=== PATIENT | female | born 1970 | race Caucasian/White ===

== ENCOUNTER 2022-08-14 13:07 | Outpatient (REF) | payer MEDICAID, SELFPAY ==
[2022-08-14 15:36] LABS: ALT 16 U/L (14-59); AST 20 U/L (15-37); Albumin 4.1 g/dL (3.4-5.0); Alkaline Phosphatase 89 U/L (46-116); Anion Gap 10.2 mmol/L (3-11); BUN 17 mg/dL (7-18); Bilirubin, Total 0.7 mg/dL (0.2-1.0); CO2 25.8 mmol/L (21.0-32.0); CREATININE 0.8 mg/dL (0.55-1.02); Calcium 9.6 mg/dL (8.5-10.1); Calculated LDL 110 mg/dL (<100); Chloride 101 mmol/L (98-107); Cholesterol 184 mg/dL (<200); Estimated GFR 89.15 (mL/min/1.73m2); Glucose 94 mg/dL (74-106); HDL Cholesterol 57 mg/dL (40-60); Potassium 3.6 mmol/L (3.5-5.1); Sodium 137 mmol/L (136-145); Total Protein 7.8 g/dL (6.4-8.2); Triglyceride 88 mg/dL (<150)
[2022-08-15 10:57] LABS: Hepatitis C Ab w Rflx HCV PCR Negative (Negative)
[2022-08-15 11:00] LABS: HIV-1/2 Ag & Ab Screen Negative (Negative)
== END 2022-08-14 13:08 | disposition home or self-care (01) ==
LOC: NCHCN 13:07
PROVIDERS: PCP Internal Medicine; Visit Provider Nurse Practitioner Family
DX: Z00.00 Encounter for general adult medical examination without abnormal findings (principal); Z13.220 Encounter for screening for lipoid disorders; Z11.59 Encounter for screening for other viral diseases; Z11.4 Encounter for screening for human immunodeficiency virus [HIV]; Z12.11 Encounter for screening for malignant neoplasm of colon; F10.99 Alcohol use, unspecified with unspecified alcohol-induced disorder; F17.200 Nicotine dependence, unspecified, uncomplicated
CPT/HCPCS: 80053; 80061; 86803; 87389

== ENCOUNTER 2022-09-25 10:29 | Outpatient (REF) | payer MEDICAID, SELFPAY ==
--- NOTE | 2022-09-25 09:00 | PAPFT_PTH ---
PATIENT: Catherine Hernandez LOC: [facility]#:[id number] AGE/SX: 51/F ROOM: RE09/25/[address]: Shayy Fabian : 1970 BED: DIS: 09/25/2022 SPEC #: [id number] RECD: 09/25/22 17:11 STATUS: LEONARD REQ #: [id number] VIOLA: 09/25/22 09:[address]: Shayy Fabian DEPT: [facility] Cytology RECD BY: Verona Ayala ENTERED: 09/25/22 17:11 SP TYPE: PAPFT OTHR DR: Ignacio Barber Tissues: 1 - CX/ENDOCX FOR PAP SMEARS Procedures: PAP THIN PREP/[facility] Screening HPV DNA PROBE Comments: [id number] (HPV 16 & 18/45) (CHLAMYDIA/GC)
--- OUTSIDE RECORDS SUMMARY | 2022-09-25 10:32 | XMS_ITS | CCD ---
Author Name Unknown Address [address] [place] [address] [id number] Organization Unknown Address [address] [place] [address] [id number] Care Team Providers Care Photography Instructor Name Role Phone CHUY WHITT Attending Physician [phone] Vital Signs Unknown or Not Available. Allergies Allergy Code Allergy Type Reaction Status No Known Allergies 0 No known allergies Active Procedures Unknown or Not Available. History of Immunizations Immunization Code Date Pneumococcal conjugate PCV 13 133 Problems Problem Code Start Date Resolved Date Status PYELONEPHRITIS 41100 Active Results Unknown or Not Available. Active Medications Unknown or Not Available. Medications Administered During Visit Unknown or Not Available. Encounters Encounter Diagnosis Diagnosis Code Start Date Encounter for screening mamm ogram for malignant neoplasm of breast [id number] 08/23/2022 Social History Smoking Status Code Start Date End Date Current every day smoker [id number] 07/22/1985 Patient Decision Aids Unknown or Not Available. Discharge Instructions You were admitted to [facility] on 08/23/2022 10:17 with a principal diagnosis of Encounter for screening mammogram for malignant neoplasm of breast You were discharged from [facility] on 08/23/2022 10:17 Should you have any questions prior to discharge, please contact a member of your healthcare team. If you have left the hospital and have any questions, please contact your primary care physician. Chief Complaint and Reason For Visit Chief Complaint Date of Onset SCREENING Function Status Unknown or Not Available. Plan of Care Unknown or Not Available. Referral/Transition of Care Unknown or Not Available.
[2022-09-26 14:09] LABS: Chlamydia Result Negative (Negative); GC Result Negative (Negative)
[2022-09-27 13:42] LABS: Varicella Zoster DNA Result Negative ((See Note))
[2022-09-27 13:46] LABS: HSV 1 DNA Result Negative (Negative); HSV 2 DNA Result Negative (Negative)
== END 2022-09-25 10:30 | disposition home or self-care (01) ==
LOC: NCHCN 10:29
PROVIDERS: PCP Internal Medicine; Visit Provider Nurse Practitioner Family
DX: K13.70 Unspecified lesions of oral mucosa (principal); Z11.59 Encounter for screening for other viral diseases; Z12.4 Encounter for screening for malignant neoplasm of cervix; Z11.3 Encounter for screening for infections with a predominantly sexual mode of transmission; R87.612 Low grade squamous intraepithelial lesion on cytologic smear of cervix (LGSIL); Z11.51 Encounter for screening for human papillomavirus (HPV); R87.810 Cervical high risk human papillomavirus (HPV) DNA test positive
CPT/HCPCS: 87491; 87529; 87591; 87798; 88142; 87624

== ENCOUNTER 2022-10-02 16:58 | Outpatient (REF) | payer MEDICAID, SELFPAY ==
[2022-10-04 14:16] LABS: Chlamydia Result Negative (Negative); GC Result Negative (Negative)
== END 2022-10-02 16:59 | disposition home or self-care (01) ==
LOC: NCHCN 16:58
PROVIDERS: PCP Internal Medicine; Visit Provider Nurse Practitioner Family
DX: K13.79 Other lesions of oral mucosa (principal)
CPT/HCPCS: 87491; 87591

== ENCOUNTER 2023-09-16 18:08 | Outpatient (REF) | payer MEDICAID, SELFPAY ==
[2023-09-16 21:59] LABS: HCT 45.3 % (36.0-46.0); HGB 15.2 g/dL (11.2-15.7); MCH 32.3 pg (27.0-33.0); MCHC 33.6 % (32.0-36.0); MCV 96 fL (80-95); MPV 10.2 fL (8.0-11.0); Platelet Count 319 10^3/uL (130-400); RDW-SD 46.5 fL; WBC 13.02 10^3/uL (4.4-10.8)
[2023-09-16 22:14] LABS: Hemoglobin A1C 5.4 % (<5.7)
[2023-09-16 22:27] LABS: Ferritin 66 ng/mL (8-252); TSH 0.68 uIU/mL (0.36-3.74)
== END 2023-09-16 18:09 | disposition home or self-care (01) ==
LOC: NCHCN 18:08
PROVIDERS: PCP Internal Medicine; Visit Provider Nurse Practitioner Family
DX: R53.83 Other fatigue (principal); Z13.1 Encounter for screening for diabetes mellitus
CPT/HCPCS: 85027; 82728; 83036; 84443

== ENCOUNTER 2024-09-23 18:20 | Outpatient (REF) | payer MEDICAID, SELFPAY ==
[2024-09-23 21:14] LABS: HCT 45.7 % (36.0-46.0); HGB 15.2 g/dL (11.2-15.7); MCH 32.1 pg (27.0-33.0); MCHC 33.3 % (32.0-36.0); MCV 97 fL (80-95); MPV 9.8 fL (8.0-11.0); Platelet Count 270 10^3/uL (130-400); RBC 4.73 10^6/uL (3.93-5.22); RDW 12.6 % (11.7-14.6); RDW-SD 45.1 fL; WBC 9.03 10^3/uL (4.4-10.8)
[2024-09-23 21:54] LABS: ALT 19 U/L (14-59); AST 19 U/L (15-37); Albumin 4.1 g/dL (3.4-5.0); Alkaline Phosphatase 100 U/L (46-116); Anion Gap 9.4 mmol/L (3-11); BUN 14 mg/dL (7-18); Bilirubin, Total 0.48 mg/dL (0.2-1.0); CO2 26.6 mmol/L (21.0-32.0); CREATININE 0.9 mg/dL (0.55-1.02); Calcium 9.1 mg/dL (8.5-10.1); Calculated LDL 93 mg/dL (<100); Chloride 106 mmol/L (98-107); Cholesterol 191 mg/dL (<200); Estimated GFR 76.44 (mL/min/1.73m2); Folate 13.2 ng/mL (8.6-20.0); Glucose 82 mg/dL (74-106); HDL Cholesterol 82 mg/dL (>or=50); Sodium 142 mmol/L (136-145); TSH 1.12 uIU/mL (0.36-3.74); Total Protein 7.5 g/dL (6.4-8.2); Triglyceride 81 mg/dL (<150); Vitamin B12 258 pg/mL (193-986)
[2024-09-24 17:35] LABS: T4, Free 1.1 ng/dL (0.8-2.2)
== END 2024-09-23 18:21 | disposition home or self-care (01) ==
LOC: NCHCN 18:20
PROVIDERS: PCP Internal Medicine; Visit Provider Nurse Practitioner Family
DX: Z00.00 Encounter for general adult medical examination without abnormal findings (principal); F41.8 Other specified anxiety disorders
CPT/HCPCS: 80053; 80061; 85027; 82607; 82746; 84439; 84443

== ENCOUNTER 2025-01-13 22:23 | Outpatient (REF) | payer MEDICAID, SELFPAY ==
[2025-01-13 21:00] LABS: ESR 6 mm/hr (0-30)
[2025-01-13 21:51] LABS: C-Reactive Protein 0.54 mg/dL (<or=0.5)
[2025-01-14 17:10] LABS: Rheumatoid Factor <8.6 IU/mL (<12.0)
== END 2025-01-13 22:24 | disposition home or self-care (01) ==
LOC: NCHCN 22:23
PROVIDERS: PCP Internal Medicine; Visit Provider Nurse Practitioner Family
DX: M79.641 Pain in right hand (principal)
CPT/HCPCS: 85652; 86140; 86431

== ENCOUNTER 2025-07-13 09:37 | Outpatient (REF) | payer MEDICAID, SELFPAY ==
[2025-07-13 14:34] LABS: Anion Gap 10.4 mmol/L (3-11); BUN 9 mg/dL (9-23); CO2 22.6 mmol/L (20.0-31.0); Calcium 9.2 mg/dL (8.3-10.6); Chloride 111 mmol/L (98-107); Glucose 101 mg/dL (74-106); Potassium 4.4 mmol/L (3.5-5.1); Sodium 144 mmol/L (136-145)
== END 2025-07-13 09:38 | disposition home or self-care (01) ==
LOC: NCHCN 09:37
PROVIDERS: PCP Internal Medicine; Visit Provider Nurse Practitioner Family
DX: I10 Essential (primary) hypertension (principal)
CPT/HCPCS: 80048